=== PATIENT | female | born 1990 | race Caucasian/White ===

== ENCOUNTER 2016-11-11 21:11 | Emergency (ER) | payer OTHER ==
--- NOTE | ~2016-11-11 | US106 ---
[facility] A Service of [facility] & [facility] RADIOLOGY TEXT RESULTS PATIENT: REGAN DOHERTY LOCATION: [facility] : 90 UNIT #: [id number] AGE: [address]: Jovanni Gutiérrez SEX: F ORDER DR: [id number] [facility] [place]. [place], [place] [address] [id number] MR#: [id number] Acc #: [id number] NAME: REGAN DOHERTY : 1990 SEX: F STUDY DATE/TIME: 11/11/2016 22:11 UNIT: [facility]FT[facility] ROOM: STUDY DESCRIPTION: US Preg Uterus Transvaginal Attending Physician: Jovanni Gutiérrez P.A.-C. Ordering Physician: Ed Doctor [id number] [facility] Primary Care Physician: Primary Care Physician No MEDICAL IMAGING REPORT This report is preliminary unless electronic signature is present EXAM Transvaginal early ultrasound INDICATION Early with bleeding. History of 4 miscarriages. Bleeding for 1 day. FINDINGS Transvaginal imaging shows an intrauterine . The gestational sac appears normal. There is a pole visible. A yolk sac is visible. [place]-rump length is about 3.03 cm for an estimated gestational age of 9 weeks 6 days. heartbeat is 180 beats per minute. Left ovary is not visible. The right ovary is visualized and appears normal and has normal flow. There is a small amount of complex fluid in the pelvis. The uterus is about 8 x 6 cm. The uterine tissues posterior to the gestational sac are much thinner than those anterior and there may be a 3.9 cm fibroid present. IMPRESSION 1. The gestational sac appears normal and there is no visible subchorionic bleed. The fetus is about 9 weeks 6 days based on crown-rump length and the heartbeat is identified. 2. The anterior myometrial tissues are thicker than those seen posteriorly and there appear to be a subtle fibroid in the uterus measuring about 3.9 cm in diameter. 3. Minimal complex fluid in the cul-de-sac. Dictated by... Dion Arana M.D. [facility] A Service of [facility] & [facility] RADIOLOGY TEXT RESULTS PATIENT: REGAN DOHERTY LOCATION: [facility] : 90 UNIT #: [id number] AGE: [address]: Jovanni Gutiérrez PAC SEX: F ORDER DR: THIS IS AN ELECTRONICALLY VERIFIED REPORT Dion Arana M.D. at 11/12/2016 1:25 PM Kassie TD: 11/12/2016 08:36 JOB #: [id number] MEDICAL IMAGING REPORT Page 1 of 1 COPY
[~2016-11-11 21:11] MED LIST: BACTRIM DS TABL1 TA1 PO; BIRTH CONTROL PILL; CIPRO PO; DIFLUCAN PO; FLEXERIL10 MG PO; IBUPROFEN800 MG PO; NO MEDICATIONS; PHENERGAN PO; PRENATAL1 TA1 PO; PROAIR HFA8.5 GM INH; PYRIDIUM PO; PYRIDIUM100 MG PO; VICODIN 5/1 TAB 5/50 PO; VISTARIL PO; ZOLOFT PO
[2016-11-11 21:31] LABS: BASOPHIL# 0.1 X10e3 (0-0.3); BASOPHIL% 0.5 % (0-2.5); EOSINOPHIL# 0.1 X10e3 (0-0.7); EOSINOPHIL% 0.7 % (0.0-7.0); HEMATOCRIT 39.1 % (35.0-45.0); HEMOGLOBIN 13.3 gm/dL (12.0-16.0); LYMPHOCYTE# 3.5 X10e3 (1.0-3.5); MEAN CELL VOLUME 86.4 FL (83-96); MEAN CORPUSCULAR HEMOGLOBIN 29.4 PG (28-34); MEAN PLATELET VOLUME 7.7 FL (6.5-11.5); MONOCYTE# 0.8 X10e3 (0-1.0); MONOCYTE% 5.9 % (3.0-12.0); NEUTROPHIL# 8.9 X10e3 (1.5-7.1); NEUTROPHIL% 66.9 % (40-75); PLATELET COUNT 243 X10e3 (140-420); RED BLOOD COUNT 4.53 X10e (3.90-5.30); RED CELL DISTRIBUTION WIDTH 12.7 % (11.0-15.5); WHITE BLOOD COUNT 13.3 X10e3 (4.0-10.5)
[2016-11-11 21:39] LABS: DIFF IND NO
[2016-11-11 21:51] LABS: CALCIUM SERUM 9.4 mg/dL (8.4-10.2); CREATININE SERUM 0.5 mg/dL (0.6-1.4); GLOM FILT RATE Estimated 133.6 mL/min (>60); POTASSIUM 3.4 mmol/L (3.5-5.1)
== END 2016-11-12 00:23 | disposition home or self-care (01) ==
LOC: CFTX 21:11
PROVIDERS: Physician Assistant
DX: O20.0 Threatened abortion (principal); O99.331 Smoking (tobacco) complicating pregnancy, first trimester; F17.210 Nicotine dependence, cigarettes, uncomplicated; Z3A.09 9 weeks gestation of pregnancy
CPT/HCPCS: 36415; 76817; 80048; 84702; 84703; 85025; 86850; 86900; 86901; 96372; 99284; J2790